=== PATIENT | female | born 1990 | race African-American/Black ===

== ENCOUNTER 2024-11-06 14:39 | Emergency (ER) | payer MEDICARE, MEDICAID ==
[~2024-11-06] VITALS: Ht 170.2 cm; Wt 77.1 kg
[2024-11-06 14:45] VITALS: TEMP 98.4
[2024-11-06] MEDS ORDERED: VENTOLIN HFA18 GM INH (16:13)
[2024-11-06 16:29] VITALS: PULSE 61; RESP 16; O2SAT 98
== END 2024-11-06 16:29 | disposition home or self-care (01) ==
LOC: ER 14:49
DX: R06.02 Shortness of breath (principal); R07.89 Other chest pain; R05.9 Cough, unspecified
CPT/HCPCS: 71046; 93005; 99283